=== PATIENT | female | born 1990 | race Two or more races ===

== ENCOUNTER 2023-11-17 08:47 | Emergency (ER) | payer MEDICAID, SELFPAY ==
[2023-11-17 08:49] VITALS: BP 116/70; PULSE 67; RESP 16; TEMP 36.4; O2SAT 98; BMI 22.4
--- NOTE | 2023-11-17 09:07 | EX.ED.DYSGE1 ---
HPI History of Present Illness Chief Complaint: Headache Detail of Chief Complaint: Headache, problem with fingernail left index finger and rash Informant: patient Onset/Context/Timing Onset: - (Varies and noted in HPI narrative) Context: - (Does not recall) Timing: - (Detailed HPI narrative since different) Quality: Pain Location: Left frontal region Current Severity: Mild Maximum Severity: Moderate Worsened by: Nothing specific Relieved by: Nothing Associated Symptoms Associated Symptoms: None Narrative Narrative: Patient is a 33-year-old G1, P1 female whose last normal menstrual period was 28 days ago. She uses no form control. She presents with 3 complaints. Her headache started months ago. Headache is located left frontal area. She denies visual disturbance. She denies ringing or ears decreased hearing. Denies trouble speech or swallowing. She denies rhinorrhea, congestion postnasal drainage sore throat. She denies respiratory symptoms. She denies GI symptoms of abdominal pain, nausea, vomit or diarrhea. She denies urologic symptoms. She reports occasional myalgias arthralgias. She has not had any joint swelling. She does report rash medial aspect of the proximal right and left thigh. Some question she did not understand even with use of medical practitioners. To the best of my ability I do not believe she has problems with balance or coordination. 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 Prior similar symptoms: Yes Recent Illness/Hospitalization: No PFSH PFSH Medical History no medical history no medical history Home Medications ?Medication ?Instructions ?Recorded ?Last Taken ?Type NK 11/17/23 Unknown History Allergy/AdvReac Type Severity Reaction Status Date / Time No Known Allergies Allergy Verified 11/17/23 08:49 Surgical History no surgical history Social History (Updated 11/17/23 @ 09:[address] Osmany Coronado MD) household members: children Smoking Status: Never smoker details: Patient denied substance use type: does not use ROS ROS ED Constitutional Constitutional ED: Denies chills, fever(s), subjective or sweats Eyes Eyes: Denies blurry vision, change in vision or diplopia ENT ENT ED: Denies ear pain, rhinorrhea or sore throat Cardiovascular Cardiovascular: Denies chest pain or palpitations Respiratory/Chest Respiratory/Chest: Denies cough, dyspnea or dyspnea on exertion Gastrointestinal Gastrointestinal: Denies abdominal pain, nausea or vomiting Genitourinary Genitourinary ED: Reports LMP (females 10-50) Details: Comment: (28 days ago); Denies dysuria, hematuria or urinary frequency Musculoskeletal Musculoskeletal: Reports arthralgias and myalgias; Denies back pain or neck pain Integumentary Reports rash; Denies Abrasions Neurologic Neurologic: Reports headache(s) and other Details: Detailed HPI narrative ; Denies paresthesias or weakness Hematologic/Lymphatic Hematologic/Lymphatic: Reports systems reviewed and no addt'l complaints, except as documented EXAM Physical Exam Const Vital Signs: 11/17/23 08:49 Temperature 97.5 F L Temperature Source Temporal Pulse Rate 67 Respiratory Rate 16 Blood Pressure 116/70 Blood Pressure Mean 85 Pulse Ox 98 Oxygen Delivery Method Room Air Positive well nourished and well developed General Appearance ED: well developed and NAD; Negative for cyanotic or diaphoretic HEENT Reports TM's clear and moist mucous membranes HEENT Narrative: Head is atraumatic no cephalic. Ears normal. Nares patent. Posteropharynx normal. TMs are normal. Tympanic Membrane ED: Yes TM's clear Eyes PERRL and EOMs intact bilaterally Eyes Narrative: There is no nystagmus. There is no photophobia. General Eye ED: Negative for pale conjunctiva or scleral icterus Neck no lymphadenopathy, supple and no JVD Chest Wall inspection of chest normal and palpation of chest normal Resp normal respiratory effort and clear to auscultation bilaterally Cardio regular rate, regular rhythm, S1 normal heart sound, S2 normal heart sound and no murmurs GI normal to inspection, nondistended, normoactive bowel sounds, non-tender and non-distended; Negative for hepatosplenomegaly Extremity normal to inspection General Extremety ED: Negative for edema or tenderness General Extremity: Negative for edema Neuro oriented x3, CN's II-XII intact bilaterally and no sensory deficits noted Neuro Narrative: DTR 2+ bicep, brachialis, tricep, patella and ankle. There is no clonus at the ankles. Babinski is negative bilaterally. Sensorium / Orientation: alert Sensory Exam: sensory level loss detected Psych mental status grossly normal Skin no wounds and skin turgor normal Skin Narrative: Heat rash/folliculitis medial aspect of the right and left proximal thigh. MDM MDM MDM Narrative Medical decision making narrative: Cephalgia due to vascular headache, would include migraine, cluster cephalgia of unknown etiology. Since he has a nonfocal neuroexam and going on for years not a thunderclap imaging was not obtained. Because of the language barrier in spite of using medical practitioners blood work was obtained to assess white count differential electrolytes glucose etc. There are no prior labs. History & Record Review Additional record(s) reviewed:: No prior records Lab Data Attestation: I reviewed the patient's lab results. Lab results narrative: Normal and test was negative Labs: Laboratory Results - last 24 hr 11/17/23 10:03 WBC 4.4 RBC 3.73 L Hgb 11.1 L Hct 34.9 L MCV 93.6 MCH 29.8 MCHC 31.8 L RDW Std Deviation 44.4 H RDW Coeff of Hitesh 12.9 Plt Count 229 MPV 11.5 Immature Gran % (Auto) 0.000 Neut % (Auto) 49.1 Lymph % (Auto) 40.3 [place] % (Auto) 8.3 Eos % (Auto) 1.8 Baso % (Auto) 0.5 Absolute Neuts (auto) 2.2 Absolute Lymphs (auto) 1.79 Nucleated RBC % 0 Sodium 140 Potassium 3.9 Chloride 109 H Carbon Dioxide 25.0 Anion Gap 6 BUN 9 Creatinine 0.63 Estim Creat Clear Calc 139.91 Est GFR (MDRD) Af Amer 141 Est GFR (MDRD) Non-Af 116 BUN/Creatinine Ratio 14.2 Glucose 85 Calcium 8.9 Serum , Qual NEGATIVE Discharge Plan Triage Chief Complaint: Headache ED Provider: Osmany Coronado Dx/Rx/DC Orders Clinical Impression: Cephalalgia, Folliculitis Instructions: ED Folliculitis, ED Pain, Acute, Uncertain Cause Prescriptions: No Action NK Primary Care Provider: Care Physician,No Primary Referrals: [facility] [Group of Physicians] - 1 Week NOT,DEFINED [Non-Staff] - Print Language: Tunisian Creole Disposition Disposition: Home, Self Care
[2023-11-17 10:13] LABS: Absolute Lymphocyte Count 1.79 X10^3/uL (0.83-4.51); Absolute Neutrophil Count 2.2 X10^3/uL (2.0-7.7); Basophil# 0.02 X10^3/uL; Basophil% 0.5 % (0-1); Eosinophil# 0.08 X10^3/uL; Eosinophils% 1.8 % (0-5); Hematocrit 34.9 % (37-47); Hemoglobin 11.1 g/dL (12.0-15.0); Lymphocyte # 1.79 X10^3/ul (0.83-4.51); Lymphocyte % 40.3 % (19-41); Mean Corp Hgb Conc 31.8 g/dL (32-36); Mean Corpuscular Hgb 29.8 pg (27.0-32.0); Mean Corpuscular Volume 93.6 fL (81-99); Mean Platelet Vol. 11.5 fl (6.2-12.0); Monocyte# 0.37 X10^3/uL; Monocyte% 8.3 % (0-10); NRBC Flagged by Analyzer 0 % (0-5); Neutrophil # 2.18 X10^3/uL (2.7-7.7); Neutrophil % 49.1 % (47-70); Platelet Count 229 K/mm3 (150-450); RBC Distribution Width CV 12.9 % (11.6-14.6); RBC Distribution Width SD 44.4 fl (35.1-43.9); Red Blood Count 3.73 M/mm3 (4.2-5.4); White Blood Count 4.4 K/mm3 (4.4-11.0)
[2023-11-17 10:35] LABS: Internal QC Validated? YES +Cl - CLEAR BKGD; Pregnancy, Serum, hCG Quali. NEGATIVE Negative; Record Kit Lot#, Serum Preg. HCG0000772476
[2023-11-17 10:49] LABS: Anion Gap 6 (5-15); BUN 9 mg/dL (7-18); BUN/Creat Ratio 14.2 RATIO (10-20); Calcium,Total 8.9 mg/dL (8.5-10.1); Chloride 109 mmol/L (98-107); Creatinine, Serum 0.63 mg/dL (0.55-1.02); EST Glomerular Filtration Rate 116 mL/min (>60); Est Glom Filt Rate - Afr Amer 141 mL/min (>60); Estimated Creatinine Clearance 139.91 ml/min; Glucose 85 mg/dL (74-106); Potassium 3.9 mmol/L (3.5-5.1); Sodium Level 140 mmol/L (136-145)
[2023-11-17] MEDS: 0.9% Normal Saline (1000mL) 1,000 ML 999 ML IV (12:17)
[2023-11-17] MEDS: DiphenhydrAMINE 50 MG/ML Syringe 25 MG IV (12:17)
[2023-11-17] MEDS: Ketorolac 15 MG/ML Vial IV (12:18)
[2023-11-17] MEDS: Metoclopramide 10 MG/2 ML Vial IV (12:20)
[2023-11-17 13:46] VITALS: BP 136/80; PULSE 67; RESP 16; TEMP 37.1; O2SAT 98
== END 2023-11-17 13:49 | disposition home or self-care (01) ==
PROVIDERS: Emergency Provider Emergency Medicine; Visit Provider Emergency Medicine
DX: R51.9 Headache, unspecified (principal); L73.9 Follicular disorder, unspecified
CPT/HCPCS: 80048; 84703; 85025; 96361; 96374; 96375; 99284; J7030; A4216

== ENCOUNTER 2024-02-15 01:21 | Emergency (ER) | payer MEDICAID, SELFPAY ==
[2024-02-15 01:22] VITALS: BP 123/71; PULSE 70; RESP 16; TEMP 20; O2SAT 100; BMI 28.4
[2024-02-15] MEDS: Naproxen 500 MG Tablet PO (01:41)
[2024-02-15] MEDS: HYDROcodone Bitartrate/Apap 5/325 Tablet PO (01:41)
[2024-02-15] MEDS: Penicillin Vk 250 MG Tablet 500 MG PO (01:41)
--- NOTE | 2024-02-15 01:44 | EDS_ITS ---
HPI History of Present Illness Chief Complaint: Dental Detail of Chief Complaint: Dental pain and started 3 weeks ago Informant: patient and other (Apartment Community Assistant Manager service was used.) Limited: language barrier Onset/Context/Timing Onset: Weeks Context: Sudden Onset (Got worse 2 to 3 days ago.) Timing: Continuous Quality: Pain Location: Tooth #14 Current Severity: Moderate Maximum Severity: Severe Worsened by: Eating or drinking anything Relieved by: - Associated Symptoms Assocated Symptom - Dental: cold sensitivity and hot sensitivity; Negative for fever, jaw swelling or face swelling Narrative Narrative: Patient is a 33-year-old woman. She presents with dental pain that started 3 weeks ago. She does not have a dentist. She presents because the pain has gotten worse. She has not been able to sleep for the last 2-3 nights. She denies objective fever. She complained of subjective fever. She had no chills. She denies her teeth not lining up. She denies facial swelling. There is no history of heart murmur or mitral valve prolapse. Her last normal menstrual period was February 04. She does not use any form of control. Prior similar symptoms: No Recent Illness/Hospitalization: No PFSH PFSH Medical History no medical history no medical history Home Medications ?Medication ?Instructions ?Recorded ?Last Taken ?Type NK 11/17/23 Unknown History hydrocodone-acetaminophen 5-325mg 1 tab PO Q6H PRN PRN Pain 3 days 02/15/24 Unknown Rx 5mg-325mg #10 TABLETS naproxen 500 mg tablet 500 mg PO BID #14 tabs 02/15/24 Unknown Rx penicillin V potassium 500 mg 500 mg PO 4X/DAY #40 tabs 02/15/24 Unknown Rx tablet Allergy/AdvReac Type Severity Reaction Status Date / Time No Known Allergies Allergy Verified 11/17/23 08:49 Surgical History no surgical history no surgical history Social History household members: children Smoking Status: Never smoker details: Patient denied substance use type: does not use ROS ROS ED Constitutional Constitutional ED: Reports fever(s) and subjective; Denies chills or sweats Eyes Eyes: Denies blurry vision or change in vision ENT ENT ED: Denies ear pain, rhinorrhea or sore throat Cardiovascular Cardiovascular: Denies chest pain or palpitations Respiratory/Chest Respiratory/Chest: Denies dyspnea Gastrointestinal Gastrointestinal: Denies nausea or vomiting Musculoskeletal Musculoskeletal: Denies neck pain Integumentary Denies rash EXAM Physical Exam Const Vital Signs: 02/15/24 01:22 Temperature 68 F L Temperature Source Oral Pulse Rate 70 Respiratory Rate 16 Blood Pressure 123/71 H Blood Pressure Mean 88 Pulse Ox 100 Oxygen Delivery Method Room Air Positive well nourished and well developed General Appearance ED: well developed and NAD HEENT Negative for trauma or tenderness Mouth ED: Yes oral and palatal mucosa normal, Yes lips normal, Yes tongue normal, Yes salivary gland normal and No mouth trauma Mouth: oral and palatal mucosa normal, lips normal, tongue normal, salivary gland normal and No mouth trauma Teeth and Gingiva: caries and teeth discoloration; Negative for abnormal tooth and associated gingiva or gingiva abnormal Throat: posterior oropharynx normal Eyes PERRL and EOMs intact bilaterally General Eye ED: Negative for pale conjunctiva or scleral icterus Neck no lymphadenopathy, supple and no JVD Lymph Lymphatic: no lymphadenopathy noted Resp normal respiratory effort and clear to auscultation bilaterally Cardio regular rate, regular rhythm, S1 normal heart sound, S2 normal heart sound and no murmurs Neuro oriented x3 and CN's II-XII intact bilaterally Sensorium / Orientation: alert Skin no rashes or lesions noted and no wounds MDM MDM MDM Narrative Medical decision making narrative: Patient has dental pain due to dental caries involving tooth #14. There may be associated apical abscess. Patient has possibly symptomatic pulpitis. She was informed that the only one that will alleviate her pain as a dentist. She was given dental sheet. She was given pain medicine in department and started on antibiotic. History & Record Review Additional record(s) reviewed:: No prior records Discharge Plan Triage Chief Complaint: Dental ED Provider: Osmany Coronado Dx/Rx/DC Orders Clinical Impression: Abscess, apical, Dental caries, Symptomatic reversible pulpitis Instructions: ED Dental Abscess Prescriptions: New hydrocodone-acetaminophen 5-325 mg tablet 1 tab PO Q6H PRN PRN (Reason: Pain) 3 Days Qty: 10 0RF penicillin V potassium 500 mg tablet 500 mg PO 4X/DAY Qty: 40 0RF naproxen 500 mg tablet 500 mg PO BID Qty: 14 0RF No Action NK Primary Care Provider: Care Physician,No Primary Referrals: Care Physician,No Primary [Primary Care Provider] - Dentist,Your [STAFF PHYSICIAN] - As soon as possible Print Language: Irais Benavidez Disposition Disposition: Home, Self Care
[2024-02-15 02:09] VITALS: BP 105/68; PULSE 64; RESP 16; TEMP 36.7; O2SAT 100
== END 2024-02-15 02:09 | disposition home or self-care (01) ==
PROVIDERS: Emergency Provider Emergency Medicine; Visit Provider Emergency Medicine
DX: K04.7 Periapical abscess without sinus (principal); K02.9 Dental caries, unspecified; K04.01 Reversible pulpitis
CPT/HCPCS: 99284

== ENCOUNTER 2024-11-15 10:28 | Emergency (ER) | payer MEDICAID, SELFPAY ==
[2024-11-15 10:31] VITALS: BP 117/47; PULSE 77; RESP 16; TEMP 36.8; O2SAT 98; BMI 27.2
--- NOTE | 2024-11-15 11:07 | EDS_ITS ---
HPI History of Present Illness Chief Complaint: Chest Pain Informant: patient Limited: language barrier (Shipping Order Clerk tablet was used.) Onset/Context/Timing Onset: Days (4) Timing: Intermittent Quality: Positive for Burning Location: Left Chest Worsened By: - (Laying on her left side) Relieved By: Nothing Associated Symptoms: Positive for Dyspnea, Lightheadedness and Palpitations; Negative for Nausea, Vomiting, Diaphoresis, Cough, Fever or Acid Reflux Narrative Narrative: Patient presents with chest pain that has been intermittent over the last 4 days. Patient describes it as burning. Patient states it is over the left upper chest. Patient states it is worse when she lays on her left side. Patient admits to some shortness of breath when the pain comes on. Patient also admits to some lightheadedness and palpitations. Patient denies any nausea or vomiting. Patient denies any cough or fever. Patient denies any diaphoresis. CVD Risk Factors: Negative for Hypertension, Diabetes, Hypercholesterolemia, Family History 1' </=55 or Smoking PE Risk Factors: Negative for Recent Travel/Surgery, Recent Immobilization, Prior DVT or PE or Cancer [facility] Medical History no medical history no medical history Home Medications ?Medication ?Instructions ?Recorded ?Last Taken ?Type NK 11/17/23 Unknown History Allergy/AdvReac Type Severity Reaction Status Date / Time No Known Allergies Allergy Verified 11/17/23 08:49 Surgical History no surgical history no surgical history Social History household members: children Smoking Status: Never smoker details: Patient denied substance use type: does not use ROS ROS ED Constitutional Constitutional ED: Reports fever(s) and subjective; Denies chills Eyes Eyes: Denies blurry vision or change in vision ENT ENT ED: Denies rhinorrhea or sore throat Cardiovascular Cardiovascular: Reports chest pain; Denies palpitations Respiratory/Chest Respiratory/Chest: Reports dyspnea; Denies cough Gastrointestinal Gastrointestinal: Denies nausea or vomiting Genitourinary Genitourinary ED: Denies dysuria or hematuria Musculoskeletal Musculoskeletal: Denies back pain or neck pain Integumentary Denies abscess or rash Neurologic Neurologic: Denies headache(s) or weakness Allergic/Immunologic Allergic/Immunologic ED: Denies mouth swelling or urticaria EXAM Physical Exam Const Vital Signs: 11/15/24 10:31 11/15/24 10:34 Temperature 98.2 F Temperature Source Temporal Pulse Rate 77 Respiratory Rate 16 Respiratory Effort Normal Non-Labored Blood Pressure 117/47 L Blood Pressure Mean 70 Pulse Ox 98 Oxygen Delivery Method Room Air Positive well nourished and well developed Constitutional Narrative: BMI is 27.2. General Appearance ED: well developed and NAD HEENT Reports moist mucous membranes normocephalic and atraumatic Neck supple and no JVD Resp normal respiratory effort and clear to auscultation bilaterally Cardio regular rate and regular rhythm GI soft to palpation, non-tender and non-distended Extremity normal to inspection General Extremety ED: Negative for edema or tenderness General Extremity: Negative for edema Neuro oriented x3, CN's II-XII intact bilaterally and no sensory deficits noted Sensorium / Orientation: alert Motor Exam: strength 5/5 throughout Psych mental status grossly normal Heart Score History: Slightly/Non-Suspicious ECG: Normal Age: </= 45 years Risk Factors: No Risk Factors Troponin: </= Normal Limit Score: 0 MDM MDM MDM Narrative Medical decision making narrative: Differential diagnosis includes cardiac dysrhythmia, cardiac ischemia, pneumonia, bronchitis, gastroesophageal reflux disease, and musculoskeletal pain. EKG will be obtained to assess for cardiac dysrhythmia and cardiac ischemia. CBC will be obtained to assess for leukocytosis and anemia. Basic metabolic profile will be obtained to assess for electrolyte abnormality and renal function. Chest x-ray will be obtained to assess for pneumonia and bronchitis. Lab Data Attestation: I reviewed the patient's lab results. Lab results narrative: CBC was reviewed and was within normal limits. Basic metabolic profile was reviewed and was within normal limits. Radiography Chest X-Ray - ED: 2 View, Read by ED Physician, Read by Radiologist and No Acute Disease Diagnostic Testing: PA and lateral chest x-ray was obtained. There are 2 views. On my independent interpretation, lung gonzales are clear. There is normal cardiac silhouette. Bony thorax is normal. There is no acute process noted. Radiologist also interpreted the x-ray and agrees. EKG Initial EKG: Attestation: I personally reviewed and interpreted this EKG as follows: Interpretation: Sinus Rhythm (60) and No Acute Injury Pattern Comments: EKG was obtained. On my independent interpretation, it showed a normal sinus rhythm with a rate of 60. TN interval, QRS interval, and QTc intervals were all normal. [place] was normal. There are no acute ST or T wave changes. Prior EKG tracings: not available for review Prior: No Prior Treatment and Re-Evaluation :: Patient was given a GI cocktail. Patient has a HEART score of 0. Patient was advised that this is low risk for acute cardiac event. Patient was instructed to follow-up with her primary care physician in 5 to 7 days. Patient was instructed to return if worse in any way. Patient understood and was agreeable with the plan. All questions were answered. Discharge Plan Triage Chief Complaint: Chest Pain ED Provider: Talha Gonzalez Dx/Rx/DC Orders Clinical Impression: Chest pain Instructions: ED Chest Pain, Noncardiac Prescriptions: No Action NK Primary Care Provider: Care Physician,No Primary Referrals: Gary Barone MD [Med Staff - Active Staff] - 5-7 Days Care Physician,No Primary [Primary Care Provider] - Print Language: Bahamian Creole Disposition Disposition: Home, Self Care
--- NOTE | 2024-11-15 12:13 | EKG12_ITS ---
Test Reason : Blood Pressure : */* mmHG Vent. Rate : 60 BPM Atrial Rate : 60 BPM P-R Int : 164 ms QRS Dur : 78 ms QT Int : 398 ms P-R-T Axes : 65 55 43 degrees QTcB Int : 398 ms Normal sinus rhythm Normal ECG Confirmed by MOHINDER AREVALO ([id number]), assistant editor JUAN RENO ([id number]) on 11/16/2024 1:06:37 PM Referred By: Confirmed By: MOHINDER AREVALO
[2024-11-15 12:35] LABS: Hematocrit 36.8 % (37-47); Hemoglobin 12.0 g/dL (12.0-15.0); Immature Granulocytes Count 0.010 X10^3/uL (0.0-0.0); Mean Corp Hgb Conc 32.6 g/dL (32-36); Mean Corpuscular Volume 94.1 fL (81-99); Mean Platelet Vol. 11.8 fl (6.2-12.0); NRBC Flagged by Analyzer 0 % (0-5); Platelet Count 205 K/mm3 (150-450); RBC Distribution Width CV 13.1 % (11.6-14.6); RBC Distribution Width SD 45.0 fl (35.1-43.9); Red Blood Count 3.91 M/mm3 (4.2-5.4); White Blood Count 5.8 K/mm3 (4.4-11.0)
[2024-11-15 12:36] VITALS: BP 112/54; PULSE 71; RESP 16; O2SAT 99
--- NOTE | 2024-11-15 12:55 | RAD_ITS ---
PROCEDURE: CHEST PA AND LATERAL 11/15/2024 REASON FOR EXAM: CHEST PAIN TECHNIQUE: CHEST PA AND LATERAL COMPARISON: None FINDINGS: Heart size and mediastinal configuration are within normal limits. There is no focal infiltrate or consolidation. There is no pneumothorax or effusion. There is no acute bony abnormality. There is no visible atherosclerosis. RAD/Chest PA and Lateral IMPRESSION: No acute process is identified in the chest. Reading Location: [facility]
[2024-11-15 13:03] LABS: Anion Gap 11 (5-15); BUN 8 mg/dL (4-19); BUN/Creat Ratio 13.0 RATIO (10-20); Calcium,Total 9.2 mg/dL (7.6-11.0); Carbon Dioxide 22.8 mmol/L (21.0-32.0); Chloride 105 mmol/L (98-108); Estimated Creatinine Clearance 157.46 ml/min (50-250); Glucose 73 mg/dL (70-99); Potassium 3.9 mmol/L (3.3-5.1)
[2024-11-15] MEDS: Lidocaine 2% Viscous15 ML UDC 15 ML PO (13:18)
[2024-11-15 15:03] VITALS: BP 132/78; PULSE 79; RESP 16; TEMP 37; O2SAT 100
== END 2024-11-15 15:04 | disposition home or self-care (01) ==
PROVIDERS: Emergency Provider Emergency Medicine; Visit Provider Emergency Medicine
DX: R07.9 Chest pain, unspecified (principal); R06.02 Shortness of breath; R00.2 Palpitations; R42 Dizziness and giddiness
CPT/HCPCS: 71046; 80048; 85025; 93005; 99283